=== PATIENT | male | born 1980 | race Caucasian/White ===

== ENCOUNTER 2019-07-10 19:58 | Emergency (ER) | payer OTHER ==
[2019-07-10 20:49] VITALS: BP 130/78; PULSE 104; RESP 20; TEMP 98
--- NOTE | 2019-07-10 21:42 | XR ---
EXAMINATION TYPE: XR elbow complete LT DATE OF EXAM: 07/10/2019 COMPARISON: NONE HISTORY: Elbow abscess TECHNIQUE: 3 views FINDINGS: There is an elbow prosthesis with prosthetic radial head. There is some lucency around the prosthesis involving the proximal radius. I see no fracture nor dislocation. There is a plate fixing the proximal ulna. No definite joint effusion. IMPRESSION: Lucency around the radial head prosthesis suggestive of loosening of the prosthesis. No f racture seen
--- NOTE | 2019-07-10 21:43 | XR ---
EXAMINATION TYPE: XR forearm LT DATE OF EXAM: 07/10/2019 COMPARISON: NONE HISTORY: Elbow abscess. Pain. Infection. TECHNIQUE: 2 views FINDINGS: There is a plate fixing the proximal ulna. There is a radial head prosthesis. There is some lucency around the radial head prosthesis that could relate to loosening and also inflammatory or in fectious process. There is no definite joint effusion. IMPRESSION: Loosening around the radial head prosthesis. Septic arthritis is possible.
--- NOTE | 2019-07-10 21:44 | ED ---
Skin/Abscess/FB HPI - General Chief complaint: Skin/Abscess/Foreign Body Stated complaint: L arm injury Time Seen by Provider: 07/10/19 20:45 Source: patient Mode of arrival: ambulatory Limitations: no limitations - History of Present Illness Initial comments: Patient is a 39-year-old male presenting to the emergency Department with complaints of a possible abscess on his left elbow that he noticed 2 days ago. Patient has previous history of significant left elbow fractures with repair consisting a plate and screws that was done in October at [facility] by Dr. Alcides Luna. Patient states ever since the surgery he has had a chronic scab in the end of his elbow that sometimes falls off and then regrows. He has never had drainage from the area. Patient states 2 days ago the scab was ripped off and then ever since he has been having yellow drainage from the wound. Patient states he feels like his left arm is also swollen and a slight increase in pain through his left elbow and left forearm. Patient denies fever, chills. Patient has no other complaints at this time. Upon arrival to ER, vital signs are stable. - Related Data Previous Rx's Medication Instructions Recorded Cephalexin [Keflex] 500 mg PO Q6HR 7 Days #28 cap 07/10/19 Allergies Allergy/AdvReac Type Severity Reaction Status Date / Time No Known Allergies Allergy Verified 07/10/19 20:47 Review of Systems ROS Statement: Those systems with pertinent positive or pertinent negative responses have been documented in the HPI. ROS Other: All systems not noted in ROS Statement are negative. Past Medical History Past Medical History: No Reported History History of Any Multi-Drug Resistant Organisms: None Reported Additional Past Surgical History / Comment(s): left arm fx repair, spleenectomy Past Psychological History: No Psychological Hx Reported Smoking Status: Current every day smoker Past Alcohol Use History: None Reported Past Drug Use History: None Reported General Exam - General Exam Comments Initial Comments: GENERAL: Well-appearing, well-nourished and in no acute distress. HEAD: Atraumatic, normocephalic. EYES: Pupils equal round and reactive to light, extraocular movements intact, sclera anicteric, conjunctiva are normal. ENT: Moist mucous membranes. NECK: Normal range of motion, supple without lymphadenopathy or JVD. LUNGS: Breath sounds clear to auscultation bilaterally and equal. No wheezes rales or rhonchi. HEART: Regular rate and rhythm without murmurs, rubs or gallops. ABDOMEN: Soft, nontender, normoactive bowel sounds. No masses appreciated. : Deferred EXTREMITIES: Patient has pain with palpation of the left olecranon process. There is some pain with palpation in the left forearm. Patient has decreased range of motion of left elbow secondary to previous injury and surgeries. There is some mild swelling to the left elbow and forearm. Patient's neurovascular intact. NEUROLOGICAL: Cranial nerves II through XII grossly intact. Normal speech, normal gait. PSYCH: Normal mood, normal affect. SKIN: Warm, Dry, normal turgor, no rashes. patient has a dime size open wound on the left olecranon process that is actively draining yellow discharge. Limitations: no limitations Course Vital Signs 07/10/19 20:47 Temperature 98.0 F Pulse Rate 104 H Respiratory 20 Rate Blood Pressure 130/78 O2 Sat by Pulse 99 Oximetry Medical Decision Making - Medical Decision Making Patient is a 39-year-old male presenting with a possible abscess on his left elbow 3 days. Patient has history of left elbow surgery in October at [facility]. Patient has a radial head a prosthesis as well as a plate and screws the proximal ulna. Patient denies fever, chills. Vital signs are stable today. On exam patient has a dime-sized open ulcer on his olecranon process that is actively draining yellow fluid. Culture was obtained and is pending at this time. X-rays of the left elbow and forearm reveal a possible loosening of the radial head prosthesis as well as possible inflammatory or infectious process. Sepsis arthritis is possible. CBC shows normal white count, ESR is 8. CMP is normal, C-reactive protein is elevated at 33.4. I spoke with Dr. Alcides Luna from [facility] who recommended patient be started on antibiotics and he will see the patient at his [place] office Sunday. Patient will go to [facility] ER if symptoms increase such as fever, chills, nausea, vomiting, or increase in redness and swelling of his left elbow. Patient is in agreement with this plan of care. Patient is stable for discharge at this time. Case is discussed with Dr. Valentin. - Lab Data Result diagrams: 07/10/19 22:08 07/10/19 22:08 Lab Results 07/10/19 07/10/19 Range/Units 22:08 22:08 WBC 8.4 (3.8-10.6) k/uL RBC 4.67 (4.30-5.90) m/uL Hgb 14.1 (13.0-17.5) gm/dL Hct 43.7 (39.0-53.0) % MCV 93.5 (80.0-100.0) fL MCH 30.2 (25.0-35.0) pg MCHC 32.3 (31.0-37.0) g/dL RDW 13.3 (11.5-15.5) % Plt Count 261 (150-450) k/uL Neutrophils % (Manual) 49 % Lymphocytes % (Manual) 37 % Monocytes % (Manual) 8 % Eosinophils % (Manual) 6 % Neutrophils # (Manual) 4.12 (1.3-7.7) k/uL Lymphocytes # (Manual) 3.11 (1.0-4.8) k/uL Monocytes # (Manual) 0.67 (0-1.0) k/uL Eosinophils # (Manual) 0.50 (0-0.7) k/uL Nucleated RBCs 0 (0-0) /100 WBC Manual Slide Review Performed RBC Morphology Normal ESR 8 (0-15) mm/hr Sodium 139 (137-145) mmol/L Potassium 4.2 (3.5-5.1) mmol/L Chloride 106 (98-107) mmol/L Carbon Dioxide 25 (22-30) mmol/L Anion Gap 8 mmol/L BUN 19 (9-20) mg/dL Creatinine 0.69 (0.66-1.25) mg/dL Est GFR (CKD-EPI)AfAm >90 (>60 ml/min/1.73 sqM) Est GFR (CKD-EPI)NonAf >90 (>60 ml/min/1.73 sqM) Glucose 102 H (74-99) mg/dL Calcium 9.1 (8.4-10.2) mg/dL Total Bilirubin 0.3 (0.2-1.3) mg/dL AST 33 (17-59) U/L ALT 32 (21-72) U/L Alkaline Phosphatase 90 (38-126) U/L C-Reactive Protein 33.4 H (<10.0) mg/L Total Protein 7.0 (6.3-8.2) g/dL Albumin 3.8 (3.5-5.0) g/dL Disposition Clinical Impression: Abscess of bursa, left elbow, Left elbow pain Disposition: HOME SELF-CARE Condition: Stable Instructions (If sedation given, give patient instructions): Abscess (ED) Additional Instructions: Please return to the Emergency Department if symptoms worsen or any other concerns. Follow-up with Dr. Luna Sunday at his [place] office. [phone]. Take antibiotics as prescribed. Prescriptions: Cephalexin [Keflex] 500 mg PO Q6HR 7 Days #28 cap Is patient prescribed a controlled substance at d/c from ED?: No Referrals: Nonstaff,Physician [Primary Care Provider] - 1-2 days Alcides Luna MD [REFERRING] - 1-2 days
[2019-07-10 22:16] LABS: HCT 43.7 % (39.0-53.0); HGB 14.1 gm/dL (13.0-17.5); MCH 30.2 pg (25.0-35.0); MCHC 32.3 g/dL (31.0-37.0); MCV 93.5 fL (80.0-100.0); Mean Platelet Volume 9.1; Platelet Count 261 k/uL (150-450); RBC 4.67 m/uL (4.30-5.90); RDW 13.3 % (11.5-15.5); WBC 8.4 k/uL (3.8-10.6)
[2019-07-10 22:27] LABS: ALT 32 U/L (21-72); AST 33 U/L (17-59); African American GFR (CKD) >90 (>60 ml/min/1.73 sqM); Albumin 3.8 g/dL (3.5-5.0); Alkaline Phosphatase 90 U/L (38-126); Anion Gap 8 mmol/L; Blood Urea Nitrogen 19 mg/dL (9-20); C Reactive Protein 33.4 mg/L (<10.0); Calcium 9.1 mg/dL (8.4-10.2); Carbon Dioxide 25 mmol/L (22-30); Chloride 106 mmol/L (98-107); Glucose 102 mg/dL (74-99); Potassium 4.2 mmol/L (3.5-5.1); Sodium 139 mmol/L (137-145); Total Bilirubin 0.3 mg/dL (0.2-1.3)
[2019-07-10 22:36] LABS: Lymphocytes # (M) 3.11 k/uL (1.0-4.8); Monocytes # (M) 0.67 k/uL (0-1.0); Neutrophils % (M) 49 %; Nucleated Red Blood Cells 0 /100 WBC (0-0); Total Cells Counted 100
[2019-07-10] MEDS ORDERED: ONDANSETRON 4 MG/2 ML VIAL IVP PRN (22:37)
[2019-07-10] MEDS ORDERED: traMADol 50 MG TAB PO PRN (22:37)
[2019-07-10] MEDS ORDERED: ACETAMINOPHEN TAB 325 MG TAB PO PRN (22:37)
[2019-07-10] MEDS ORDERED: MORPHINE SULFATE 4 MG/ML SYRINGE IV PRN (22:37)
[2019-07-10] MEDS ORDERED: NALOXONE 0.4 MG/ML 1 ML VIAL IV PRN (22:37)
[2019-07-10] MEDS ORDERED: SODIUM CHLORIDE 0.9% 1,000 ML IV SCH (22:45)
[2019-07-10 23:14] LABS: Erythrocyte Sedimentation Rate 8 mm/hr (0-15)
[2019-07-10] MEDS ORDERED: ACET/COD 300 MG/30 MG STARTER PACK 6 TAB BTL PO STA (23:53)
== END 2019-07-11 | disposition home or self-care (01) ==
LOC: EC 19:58
DX: M71.022 Abscess of bursa, left elbow (principal); R79.89 Other specified abnormal findings of blood chemistry; F17.200 Nicotine dependence, unspecified, uncomplicated; Z87.81 Personal history of (healed) traumatic fracture; Z96.7 Presence of other bone and tendon implants
CPT/HCPCS: 36415; 80053; 85025; 85652; 86140; 87070; 87077; 87186; 87205; 99283

== ENCOUNTER 2019-09-02 22:25 | Emergency (ER) | payer OTHER ==
[2019-09-02 22:37] VITALS: RESP 18
[2019-09-02] MEDS ORDERED: cefTRIAXone IN SWFI 1,000 MG/10 ML SYRINGE IVP STA (22:56)
[2019-09-02] MEDS ORDERED: SODIUM CHLORIDE 0.9% 1,000 ML IV STA (22:56)
--- NOTE | 2019-09-03 00:04 | XR ---
EXAMINATION TYPE: XR elbow complete LT DATE OF EXAM: 09/02/2019 COMPARISON: NONE HISTORY: Pain TECHNIQUE: 3 views FINDINGS: There is a plate with screws fixing fracture of the proximal ulna. There is radial head pro sthesis. I see no fracture nor dislocation. There is no sign of joint effusion. There is lucency arou nd the radial head prosthesis. IMPRESSION: No fracture seen. There is some lucency around the radial head prosthesis that is consist ent with loosening.
--- NOTE | 2019-09-03 00:05 | XR ---
EXAMINATION TYPE: XR forearm LT DATE OF EXAM: 09/02/2019 COMPARISON: NONE HISTORY: Pain TECHNIQUE: 2 views FINDINGS: There is a plate with screws fixing proximal ulna. There is radial head prosthesis with pradip ency around the prosthesis consistent with instability and loosening. I see no fracture nor dislocati on. Wrist joint is intact. IMPRESSION: There is some loosening of the radial head prosthesis. No fracture seen.
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
[2019-09-03 00:41] LABS: ALT 30 U/L (4-49); AST 31 U/L (17-59); African American GFR (CKD) >90 (>60 ml/min/1.73 sqM); Albumin 3.8 g/dL (3.5-5.0); Alkaline Phosphatase 112 U/L (38-126); Anion Gap 6 mmol/L; Blood Urea Nitrogen 15 mg/dL (9-20); C Reactive Protein <5.0 mg/L (<10.0); Carbon Dioxide 25 mmol/L (22-30); Chloride 107 mmol/L (98-107); Glucose 90 mg/dL (74-99); Non-African American GFR(CKD) >90 (>60 ml/min/1.73 sqM); Potassium 4.3 mmol/L (3.5-5.1); Sodium 138 mmol/L (137-145); Total Bilirubin 0.4 mg/dL (0.2-1.3); Total Protein 7.1 g/dL (6.3-8.2)
[2019-09-03 00:50] LABS: Basophils # (A) 0.1 k/uL (0-0.2); Basophils % (A) 2 %; Eosinophils # (A) 0.3 k/uL (0-0.7); Eosinophils % (A) 3 %; HCT 45.9 % (39.0-53.0); HGB 15.3 gm/dL (13.0-17.5); Lymphocytes # (A) 2.4 k/uL (1.0-4.8); Lymphocytes % (A) 27 %; MCH 31.2 pg (25.0-35.0); MCHC 33.4 g/dL (31.0-37.0); MCV 93.6 fL (80.0-100.0); Mean Platelet Volume 10.4; Monocytes % (A) 11 %; Neutrophils # (A) 4.8 k/uL (1.3-7.7); Neutrophils % (A) 54 %; Platelet Count 266 k/uL (150-450); RBC 4.91 m/uL (4.30-5.90); RDW 13.2 % (11.5-15.5); WBC 8.9 k/uL (3.8-10.6)
[2019-09-03 01:25] LABS: Erythrocyte Sedimentation Rate 2 mm/hr (0-15)
[2019-09-03] MEDS ORDERED: SULFAMETH-TMP DS STARTER PACK 2 TAB BTL PO STA (01:50)
[2019-09-03 02:00] VITALS: BP 129/85; PULSE 81; TEMP 98.5
== END 2019-09-03 02:25 | disposition home or self-care (01) ==
LOC: EC 22:25
DX: L02.414 Cutaneous abscess of left upper limb (principal); F17.200 Nicotine dependence, unspecified, uncomplicated; Z90.81 Acquired absence of spleen; W13.2XXA Fall from, out of or through roof, initial encounter
CPT/HCPCS: 36415; 80053; 85652; 83605; 85025; 86140; 87040; 87070; 87205; 73080; 73090; 99283; 10060; 96374; 96361 ×2; J0696

== ENCOUNTER 2019-10-27 07:29 | Emergency (ER) | payer OTHER ==
[2019-10-27 07:43] VITALS: BP 142/85; PULSE 94; RESP 18; TEMP 98.6
[2019-10-27] MEDS ORDERED: GELATIN SPONGE,ABSORB (SMALL) 1 EACH SPONGE TOPICAL STA (07:50)
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
--- NOTE | 2019-10-27 08:36 | XR ---
EXAMINATION TYPE: XR forearm LT, XR elbow complete LT DATE OF EXAM: 10/27/2019 CLINICAL HISTORY: Trauma with subsequent left forearm pain. TECHNIQUE: Two views of the left forearm are obtained. 2 views of the left elbow were also obtained. COMPARISON: 09/02/2019 FINDINGS: Surgical hardware has been removed on the left radius and ulna. Focal soft tissue swelling is seen of the proximal and mid diaphysis overlying the left ulna. There is no acute displaced proxim al diaphyseal transversely oriented noncomminuted ulnar fracture with maximal distal fragment radial displacement of 4 mm. This is nondisplaced on the lateral view. There is a nonunited radial head prio r fracture. There is positive ulnar variance also noted. There are punctate calcifications overlying the olecranon that may be dystrophic or related to foreign bodies. Small elbow joint effusion. Portio ns of the medial upper condyle are absent, likely surgically. IMPRESSION: 1. Acute transversely oriented minimally displaced proximal ulnar diaphyseal refracture with old hard venegas fracture removed in the interim. Nonunited proximal radial head fracture is also seen with parti al absence of the medial upper condyle, likely postsurgical. Overlying soft tissue swelling is presen t as well as multiple calcifications marked on the images that may be dystrophic from prior surgery a nd injury or related to foreign bodies.
[2019-10-27] MEDS ORDERED: ACET/COD 300 MG/30 MG STARTER PACK 6 TAB BTL PO STA (08:53)
== END 2019-10-27 09:05 | disposition home or self-care (01) ==
LOC: EC 07:29
DX: S52.092A Other fracture of upper end of left ulna, initial encounter for closed fracture (principal); F17.200 Nicotine dependence, unspecified, uncomplicated; X58.XXXA Exposure to other specified factors, initial encounter; Y93.89 Activity, other specified
CPT/HCPCS: 29105; 99283

== ENCOUNTER 2020-12-04 22:37 | Observation (INO) | payer OTHER ==
[2020-12-04] MEDS ORDERED: KETOROLAC 15 MG/ML 1 ML VIAL IVP STA (22:51)
[2020-12-04] MEDS ORDERED: ONDANSETRON 4 MG/2 ML VIAL IVP STA (22:51)
[2020-12-04] MEDS ORDERED: SODIUM CHLORIDE 0.9% 1,000 ML IV STA ×2 (22:51)
[2020-12-04] MEDS ORDERED: MORPHINE SULFATE 4 MG/ML SYRINGE IV STA (22:51)
[2020-12-04] MEDS ORDERED: PANTOPRAZOLE 40 MG/10 ML VIAL IVP STA (22:51)
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
[2020-12-04 23:20] LABS: Partial Thromboplastin Time 26.1 sec (22.0-30.0); Prothrombin Time 10.9 sec (9.0-12.0)
[2020-12-04 23:22] LABS: ALT 696 U/L (4-49); AST 323 U/L (17-59); African American GFR (CKD) >90 (>60 ml/min/1.73 sqM); Alkaline Phosphatase 166 U/L (38-126); Amylase 76 U/L (30-110); Anion Gap 6 mmol/L; Blood Urea Nitrogen 23 mg/dL (9-20); Calcium 9.4 mg/dL (8.4-10.2); Carbon Dioxide 30 mmol/L (22-30); Chloride 106 mmol/L (98-107); Glucose 106 mg/dL (74-99); Lipase 215 U/L (23-300); Non-African American GFR(CKD) >90 (>60 ml/min/1.73 sqM); Sodium 142 mmol/L (137-145); Total Bilirubin 0.4 mg/dL (0.2-1.3); Total Protein 7.3 g/dL (6.3-8.2)
--- NOTE | 2020-12-04 23:37 | US ---
EXAMINATION TYPE: US gallbladder DATE OF EXAM: 12/04/2020 COMPARISON: NONE CLINICAL HISTORY: pain. RUQ pain EXAM MEASUREMENTS: Liver Length: 17.2 cm Gallbladder Wall: .13 cm CBD: .5 cm Right Kidney: 10.8 x 4.2 x 5.4 cm Pancreas: Obscured by bowel gas Liver: wnl Gallbladder: Upper limits 10.3 cm Evidence for sonographic Mathews's sign: No CBD: wnl Right Kidney: wnl IMPRESSION: Gallbladder is dilated and measures 5 cm in diameter and suggestive of gallbladder dysfunction or cho lecystitis. No dilated ducts. No gallbladder wall thickening seen however. There was no pain over the gallbladder. No focal liver defect.
[2020-12-04 23:49] LABS: Basophils # (A) 0.1 k/uL (0-0.2); Basophils % (A) 1 %; Eosinophils # (A) 0.4 k/uL (0-0.7); Eosinophils % (A) 4 %; HGB 16.4 gm/dL (13.0-17.5); Lymphocytes # (A) 3.8 k/uL (1.0-4.8); Lymphocytes % (A) 38 %; MCH 32.2 pg (25.0-35.0); MCHC 33.5 g/dL (31.0-37.0); MCV 95.9 fL (80.0-100.0); Mean Platelet Volume 10.6; Monocytes # (A) 1.3 k/uL (0-1.0); Monocytes % (A) 13 %; Neutrophils # (A) 4.2 k/uL (1.3-7.7); Neutrophils % (A) 41 %; Platelet Count 240 k/uL (150-450); RBC 5.11 m/uL (4.30-5.90); RDW 13.1 % (11.5-15.5); WBC 10.2 k/uL (3.8-10.6)
[2020-12-05] MEDS ORDERED: ACETAMINOPHEN TAB 325 MG TAB PO PRN (00:44)
[2020-12-05] MEDS ORDERED: NALOXONE 0.4 MG/ML 1 ML VIAL IV PRN (00:44)
[2020-12-05] MEDS ORDERED: AMPICILLIN-SULBACTAM 3 GM in SODIUM CHLORIDE 0.9% 100 ML IVPB STA (00:44)
[2020-12-05] MEDS ORDERED: ONDANSETRON 4 MG/2 ML VIAL IVP PRN (00:44)
[2020-12-05] MEDS: DEXTROSE 5%-0.45% NACL 1,000 ML IV SCH ×2 (01:07→09:53)
[2020-12-05] MEDS: MORPHINE SULFATE 4 MG/ML SYRINGE IV PRN ×3 (02:22→10:12)
[2020-12-05 03:03] VITALS: RESP 18
[2020-12-05 07:46] VITALS: BP 122/71; PULSE 60; TEMP 97.6
[2020-12-05] MEDS ORDERED: AMPICILLIN-SULBACTAM 3 GM in SODIUM CHLORIDE 0.9% 100 ML IVPB SCH (09:00)
[2020-12-05 10:25] LABS: ALT 580 U/L (4-49); AST 246 U/L (17-59); African American GFR (CKD) >90 (>60 ml/min/1.73 sqM); Albumin 3.1 g/dL (3.5-5.0); Albumin/Globulin Ratio 1.1; Alkaline Phosphatase 117 U/L (38-126); Anion Gap 2 mmol/L; Blood Urea Nitrogen 18 mg/dL (9-20); Calcium 8.4 mg/dL (8.4-10.2); Carbon Dioxide 26 mmol/L (22-30); Chloride 110 mmol/L (98-107); Globulin 2.8 g/dL; Glucose 91 mg/dL (74-99); Non-African American GFR(CKD) >90 (>60 ml/min/1.73 sqM); Potassium 4.2 mmol/L (3.5-5.1); Sodium 138 mmol/L (137-145); Total Bilirubin 0.8 mg/dL (0.2-1.3); Total Protein 5.9 g/dL (6.3-8.2)
[2020-12-05 10:33] LABS: Basophils # (A) 0.1 k/uL (0-0.2); Basophils % (A) 1 %; Eosinophils # (A) 0.3 k/uL (0-0.7); Eosinophils % (A) 4 %; HCT 46.1 % (39.0-53.0); HGB 14.8 gm/dL (13.0-17.5); Lymphocytes # (A) 2.3 k/uL (1.0-4.8); Lymphocytes % (A) 32 %; MCH 31.2 pg (25.0-35.0); MCHC 32.1 g/dL (31.0-37.0); MCV 97.1 fL (80.0-100.0); Mean Platelet Volume 10.6; Monocytes # (A) 1.1 k/uL (0-1.0); Monocytes % (A) 16 %; Neutrophils # (A) 3.2 k/uL (1.3-7.7); Neutrophils % (A) 44 %; Platelet Count 201 k/uL (150-450); RBC 4.74 m/uL (4.30-5.90); RDW 13.5 % (11.5-15.5); WBC 7.2 k/uL (3.8-10.6)
--- NOTE | 2020-12-05 11:44 | P.GSHP ---
History of Present Illness H&P Date: 12/05/20 Chief Complaint: Right upper quadrant pain 40-year-old male comes in the hospital with right upper quadrant pain that began on . Patient says the pain radiates from the right upper quadrant to the back. He has a personal history of hepatitis C. Apparently he was close to see a specialist in the [place] area but never followed up with them. His liver enzymes were elevated on arrival. Ultrasound showed a slightly distended gallbladder. There was no sonographic Mathews's sign. There was no gallbladder wall thickening. Biliary tree without dilation. No stones were seen. Patient says he does feel better today. He states he is likely going to be leaving the hospital. Denies fevers or chills. No change in the color of his skin urine or stool. Today's labs show a slight improvement in his liver enzymes. - Review of Systems Comment: The patient denies any acute changes in vision or hearing, no dysphagia or odyn ophagia, no chest pain or shortness of breath, no dysuria or hematuria, no headache, no runny nose, no rectal bleeding or melena, no unexplained weight loss Past Medical History Past Medical History: No Reported History History of Any Multi-Drug Resistant Organisms: None Reported Additional Past Surgical History / Comment(s): left arm fx repair, spleenectomy Past Psychological History: No Psychological Hx Reported Smoking Status: Current every day smoker Past Alcohol Use History: None Reported Past Drug Use History: None Reported Medications and Allergies Home Medications Medication Instructions Recorded Confirmed Type rOPINIRole HCL [Requip] 2 mg PO HS 12/05/20 12/05/20 History Allergies Allergy/AdvReac Type Severity Reaction Status Date / Time No Known Allergies Allergy Verified 12/05/20 07:49 Surgical - Exam Vital Signs Temp Pulse Resp BP Pulse Ox 98 F 71 18 142/95 98 12/04/20 22:40 12/04/20 22:40 12/04/20 22:40 12/04/20 22:40 12/04/20 22:40 Physical exam: General: Well-developed, well-nourished male somewhat anxious HEENT: Normocephalic, sclerae nonicteric Abdomen: Mild right upper quadrant tenderness, nondistended Extremities: No edema Neuro: Alert and oriented Results - Labs 12/05/20 09:58 12/05/20 09:58 Abnormal Lab Results - Last 24 Hours (Table) 12/04/20 12/04/20 12/05/20 Range/Units 22:51 22:51 09:58 Monocytes # 1.3 H 1.1 H (0-1.0) k/uL Chloride (98-107) mmol/L BUN 23 H (9-20) mg/dL Glucose 106 H (74-99) mg/dL AST 323 H (17-59) U/L ALT 696 H (4-49) U/L Alkaline Phosphatase 166 H (38-126) U/L Total Protein (6.3-8.2) g/dL Albumin (3.5-5.0) g/dL 12/05/20 Range/Units 09:58 Monocytes # (0-1.0) k/uL Chloride 110 H (98-107) mmol/L BUN (9-20) mg/dL Glucose (74-99) mg/dL AST 246 H (17-59) U/L ALT 580 H (4-49) U/L Alkaline Phosphatase (38-126) U/L Total Protein 5.9 L (6.3-8.2) g/dL Albumin 3.1 L (3.5-5.0) g/dL Diabetes panel 12/04/20 12/05/20 Range/Units 22:51 09:58 Sodium 142 138 (137-145) mmol/L Potassium 4.0 4.2 (3.5-5.1) mmol/L Chloride 106 110 H (98-107) mmol/L Carbon Dioxide 30 26 (22-30) mmol/L BUN 23 H 18 (9-20) mg/dL Creatinine 0.83 0.76 (0.66-1.25) mg/dL Glucose 106 H 91 (74-99) mg/dL Calcium 9.4 8.4 (8.4-10.2) mg/dL AST 323 H 246 H (17-59) U/L ALT 696 H 580 H (4-49) U/L Alkaline Phosphatase 166 H 117 (38-126) U/L Total Protein 7.3 5.9 L (6.3-8.2) g/dL Albumin 4.0 3.1 L (3.5-5.0) g/dL Calcium panel 12/04/20 12/05/20 Range/Units 22:51 09:58 Calcium 9.4 8.4 (8.4-10.2) mg/dL Albumin 4.0 3.1 L (3.5-5.0) g/dL Pituitary panel 12/04/20 12/05/20 Range/Units 22:51 09:58 Sodium 142 138 (137-145) mmol/L Potassium 4.0 4.2 (3.5-5.1) mmol/L Chloride 106 110 H (98-107) mmol/L Carbon Dioxide 30 26 (22-30) mmol/L BUN 23 H 18 (9-20) mg/dL Creatinine 0.83 0.76 (0.66-1.25) mg/dL Glucose 106 H 91 (74-99) mg/dL Calcium 9.4 8.4 (8.4-10.2) mg/dL Adrenal panel 21 12/05/20 Range/Units 22:51 09:58 Sodium 142 138 (137-145) mmol/L Potassium 4.0 4.2 (3.5-5.1) mmol/L Chloride 106 110 H (98-107) mmol/L Carbon Dioxide 30 26 (22-30) mmol/L BUN 23 H 18 (9-20) mg/dL Creatinine 0.83 0.76 (0.66-1.25) mg/dL Glucose 106 H 91 (74-99) mg/dL Calcium 9.4 8.4 (8.4-10.2) mg/dL Total Bilirubin 0.4 0.8 (0.2-1.3) mg/dL AST 323 H 246 H (17-59) U/L ALT 696 H 580 H (4-49) U/L Alkaline Phosphatase 166 H 117 (38-126) U/L Total Protein 7.3 5.9 L (6.3-8.2) g/dL Albumin 4.0 3.1 L (3.5-5.0) g/dL Assessment and Plan (1) Abdominal pain Narrative/Plan: 40-year-old male with right upper quadrant pain. Patient with elevated liver enzymes and personal history of hepatitis C. Patient's workup shows a distended gallbladder without inflammatory changes. No stone seen. Recommend GI evaluation for hepatitis C. He and I discussed options of CAT scan and HIDA scan for further evaluation of his discomfort. He states he is planning to leave the hospital regardless. Patient could be discharged with plans for outpatient follow-up if he desires. Resume diet at this time. We'll see if the patient waits for GI eval. Current Visit: Yes Status: Acute Code(s): R10.9 - UNSPECIFIED ABDOMINAL PAIN SNOMED Code(s): 09853237
== END 2020-12-05 13:55 | disposition left against medical advice (07) ==
LOC: EC 22:37 → 6NMEDSUR 12-05 00:46
PROVIDERS: ADMIT Surgery; ATTEND Surgery
DX: R10.11 Right upper quadrant pain (principal); K82.8 Other specified diseases of gallbladder; B19.20 Unspecified viral hepatitis C without hepatic coma; F17.200 Nicotine dependence, unspecified, uncomplicated; Z53.21 Procedure and treatment not carried out due to patient leaving prior to being seen by health care provider; Z90.81 Acquired absence of spleen; Z20.822 Contact with and (suspected) exposure to COVID-19
CPT/HCPCS: 99285; 36415; 80053 ×2; 82150; 83690; 85025 ×2; 85610; 85730; 87635; 76705; G0378; J2270 ×2; J2405; J0295; J1885; C9113

== ENCOUNTER → 2020-12-16 | Outpatient (CLI) | payer OTHER ==
[2020-12-16 20:10] LABS: Basophils # (A) 0.11 X 10*3/uL (0.00-0.10); Basophils % (A) 1.7 %; Eosinophils # (A) 0.18 X 10*3/uL (0.04-0.35); Eosinophils % (A) 2.7 %; HCT 51.6 % (39.6-50.0); HGB 16.7 g/dL (13.0-17.0); Lymphocytes # (A) 2.16 X 10*3/uL (0.90-5.00); Lymphocytes % (A) 32.6 %; MCH 31.5 pg (27.0-32.0); MCHC 32.4 g/dL (32.0-37.0); MCV 97.2 fL (80.0-97.0); Monocytes # (A) 1.18 X 10*3/uL (0.20-1.00); Monocytes % (A) 17.8 %; Neutrophils # (A) 2.97 X 10*3/uL (1.80-7.70); Neutrophils % (A) 44.9 %; Platelet Count 244 X 10*3/uL (140-440); RBC 5.31 X 10*6/uL (4.40-5.60); RDW 14.6 % (11.5-14.5); WBC 6.62 X 10*3/uL (4.50-10.00)
[2020-12-16 20:14] LABS: Gliadin AB IgA, Deaminated NEGATIVE (NEGATIVE); Gliadin AB IgA, Unit 1.5 U/mL; Gliadin AB IgG, Deaminated NEGATIVE (NEGATIVE)
[2020-12-16 20:20] LABS: Ferritin 299.9 ng/mL (22.0-322.0)
[2020-12-16 21:34] LABS: Hepatitis B Surface AB- Quant 26.1 mIU/mL; Hepatitis B Surface Antibody Reactive (Non-Reactive); Hepatitis B Surface Antigen Non-Reactive (Non-Reactive)
[2020-12-16 21:53] LABS: Protein, Total 7.3 g/dL (6.2-8.2)
[2020-12-17 05:40] LABS: Hepatitis BE Antigen Nonreactive (Nonreacitve)
[2020-12-17 08:45] LABS: % Iron Saturation 59.05 (15.00-50.00); African American GFR (CKD) 107.9 (60.0-200.0); Albumin 4.4 g/dL (3.80-4.90); Albumin/Globulin Ratio 1.57 (1.60-3.17); Anion Gap 6.6 mmol/L (4.00-12.00); Calcium 9.8 mg/dL (8.7-10.3); Carbon Dioxide 28.4 mmol/L (21.6-31.8); Globulin 2.8 g/dL (1.6-3.3); Non-African American GFR(CKD) 93.1 (60.0-200.0); Potassium 4.7 mmol/L (3.5-5.5); Total Protein 7.2 g/dL (6.2-8.2)
[2020-12-17 11:43] LABS: Liver/Kidney Microsome Antibod 0.8 UNITS (<=20)
[2020-12-17 12:21] LABS: Ceruloplasmin 24.3 mg/dL (20.0-60.0)
[2020-12-17 16:26] LABS: Total Bilirubin 0.7 mg/dL (0.3-1.2)
== END | disposition home or self-care (01) ==
LOC: LABWHC1 10:13
PROVIDERS: ATTEND Internal Medicine
DX: R74.01 Elevation of levels of liver transaminase levels (principal)
CPT/HCPCS: 36415; 80053; 82390; 82728; 83516; 83540; 83550; 84165; 85025; 86038; 86376; 86704; 86706; 87340; 87350; 87522

== ENCOUNTER 2021-08-06 03:04 | Emergency (ER) | payer OTHER ==
[2021-08-06 03:11] VITALS: BP 114/72; PULSE 62; RESP 18; TEMP 98.7
[2021-08-06] MEDS ORDERED: IBUPROFEN 400 MG TAB PO STA (03:40)
[2021-08-06] MEDS ORDERED: HYDROcodone/APAP 5-325MG 1 EACH TAB PO STA (03:40)
--- NOTE | 2021-08-06 03:45 | ED ---
Upper Extremity HPI - General Chief Complaint: Extremity Injury, Upper Stated Complaint: Bilateral hand injury Time Seen by Provider: 08/06/21 03:15 Source: patient Mode of arrival: ambulatory Limitations: no limitations - History of Present Illness Complaint: Injury to:: left, right, hand -: hour(s) Other Extremity Injury: Hand: Left, Right, Wrist: Left Handedness: right Place: work Improves With: immobilization Worsens With: movement of extremity Context: direct blow - Related Data Home Medications Medication Instructions Recorded Confirmed rOPINIRole HCL [Requip] 2 mg PO HS 12/05/20 12/05/20 Previous Rx's Medication Instructions Recorded Ibuprofen [Motrin] 600 mg PO Q8HR PRN #20 tab 08/06/21 Allergies Allergy/AdvReac Type Severity Reaction Status Date / Time No Known Allergies Allergy Verified 08/06/21 03:11 Review of Systems ROS Statement: Those systems with pertinent positive or pertinent negative responses have been documented in the HPI. ROS Other: All systems not noted in ROS Statement are negative. Constitutional: Denies: fever Musculoskeletal: Reports: as per HPI, joint swelling, arthralgia Skin: Denies: rash, lesions Neurological: Denies: weakness, numbness, paresthesias Past Medical History Past Medical History: No Reported History History of Any Multi-Drug Resistant Organisms: None Reported Additional Past Surgical History / Comment(s): left arm fx repair, spleenectomy Past Psychological History: No Psychological Hx Reported Smoking Status: Current every day smoker Past Alcohol Use History: Daily Past Drug Use History: Marijuana General Exam Limitations: no limitations General appearance: alert, in no apparent distress Right Elbow exam: Present: normal inspection, full ROM Forearm Wrist exam: Present: normal inspection, full ROM Hand Wrist exam: Present: tenderness, swelling. Absent: laceration, ecchymosis, deformity, crepitus, dislocation, erythema, amputation, nail avulsion, subungual hematoma Neuro motor exam: Present: wrist extension intact, thumb opposition intact, thumb IP flexion intact, thumb adduction intact, fingers 2-5 abduction intact Neurosensory exam: Present: 2-point discrimination, radial nerve intact, ulnar nerve intact, median nerve intact Vascular: Present: normal capillary refill. Absent: pulse deficit radial art, pulse deficit ulnar art, pulse deficit brachial art Left Elbow exam: Present: normal inspection, full ROM. Absent: tenderness, swelling Forearm Wrist exam: Present: normal inspection, full ROM. Absent: tenderness, swelling Hand Wrist exam: Present: normal inspection, full ROM, tenderness. Absent: swelling, abrasion, laceration, ecchymosis, deformity, crepitus, dislocation Course Vital Signs 08/06/21 03:08 Temperature 98.7 F Pulse Rate 62 Respiratory 18 Rate Blood Pressure 114/72 O2 Sat by Pulse 100 Oximetry Disposition Clinical Impression: Contusion of hand Disposition: HOME SELF-CARE Condition: Good Instructions (If sedation given, give patient instructions): Hand Sprain (ED) Prescriptions: Ibuprofen [Motrin] 600 mg PO Q8HR PRN #20 tab PRN Reason: Pain Is patient prescribed a controlled substance at d/c from ED?: No Referrals: Nonstaff,Physician [Primary Care Provider] - 1-2 days
--- NOTE | 2021-08-06 03:58 | XR ---
EXAMINATION TYPE: XR hand complete bilateral DATE OF EXAM: 08/06/2021 COMPARISON: NONE HISTORY: Complaining injury. Pain. TECHNIQUE: 3 views each hand FINDINGS: There is intramedullary glory in the left ulna. The metacarpals are intact. Carpal bones are intact. The fingers appear intact. There are no erosions. There is soft tissue swelling on the dorsum of the right hand. There is no significant swelling on the left side. IMPRESSION: No fracture seen. Soft tissue swelling seen on the right hand.
[2021-08-06] MEDS ORDERED: traMADol 50 MG STARTER PACK 3 TAB BTL PO STA (04:43)
== END 2021-08-06 04:52 | disposition home or self-care (01) ==
LOC: EC 03:04
DX: S60.222A Contusion of left hand, initial encounter (principal); S60.221A Contusion of right hand, initial encounter; F17.200 Nicotine dependence, unspecified, uncomplicated; W50.0XXA Accidental hit or strike by another person, initial encounter; Y92.89 Other specified places as the place of occurrence of the external cause
CPT/HCPCS: 99284

== ENCOUNTER 2022-09-15 06:45 | Emergency (ER) | payer OTHER ==
[2022-09-15 06:53] VITALS: BP 157/101; PULSE 92; RESP 16; TEMP 97.9
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
[2022-09-15 07:27] LABS: Basophils # (A) 0.1 k/uL (0-0.2); Basophils % (A) 0 %; Eosinophils # (A) 0.1 k/uL (0-0.7); Eosinophils % (A) 0 %; HCT 46.4 % (39.0-53.0); HGB 15.8 gm/dL (13.0-17.5); Lymphocytes # (A) 0.9 k/uL (1.0-4.8); Lymphocytes % (A) 5 %; MCV 94.2 fL (80.0-100.0); Mean Platelet Volume 11.5; Monocytes % (A) 5 %; Neutrophils # (A) 18.1 k/uL (1.3-7.7); Neutrophils % (A) 89 %; Platelet Count 186 k/uL (150-450); RBC 4.92 m/uL (4.30-5.90); RDW 12.8 % (11.5-15.5); WBC 20.4 k/uL (3.8-10.6)
[2022-09-15 07:48] LABS: ALT 31 U/L (4-49); AST 81 U/L (17-59); African American GFR (CKD) >90 (>60 ml/min/1.73 sqM); Albumin 4.7 g/dL (3.5-5.0); Alcohol <10 mg/dL; Alkaline Phosphatase 137 U/L (38-126); Anion Gap 8 mmol/L; Blood Urea Nitrogen 19 mg/dL (9-20); Calcium 8.6 mg/dL (8.4-10.2); Carbon Dioxide 25 mmol/L (22-30); Chloride 107 mmol/L (98-107); Glucose 96 mg/dL (74-99); Non-African American GFR(CKD) >90 (>60 ml/min/1.73 sqM); Sodium 140 mmol/L (137-145); Total Bilirubin 1.2 mg/dL (0.2-1.3); Total Protein 7.8 g/dL (6.3-8.2)
[2022-09-15 07:54] LABS: Potassium 4.6 mmol/L (3.5-5.1)
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
[2022-09-15 08:55] LABS: Amphetamine Screen,Urine Detected (NotDetected); Barbiturate Screen,Urine Not Detected (NotDetected); Benzodiazepines Screen,Urine Not Detected (NotDetected); Cocaine Screen,Urine Not Detected (NotDetected); Methadone Screen, Urine Not Detected (NotDetected); Opiate Screen,Urine Not Detected (NotDetected); Oxycodone Screen, Urine Not Detected (NotDetected); Phencyclidine Screen,Urine Not Detected (NotDetected); Tricyclic Antidepressant,Urine Not Detected (NotDetected); Urn Cannabinoid Scrn Detected (NotDetected)
[2022-09-15 09:25] LABS: Partial Thromboplastin Time 25.1 sec (22.0-30.0); Prothrombin Time 10.6 sec (9.0-12.0)
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
[2022-09-15] MEDS ORDERED: ACET/COD 300 MG/30 MG STARTER PACK 6 TAB BTL PO STA ×2 (10:00→18:33)
== END 2022-09-15 10:13 | disposition home or self-care (01) ==
LOC: EC 06:45
DX: S80.02XA Contusion of left knee, initial encounter (principal); M89.9 Disorder of bone, unspecified; F17.200 Nicotine dependence, unspecified, uncomplicated; F12.90 Cannabis use, unspecified, uncomplicated; V89.2XXA Person injured in unspecified motor-vehicle accident, traffic, initial encounter; Y92.411 Interstate highway as the place of occurrence of the external cause
CPT/HCPCS: 99285 ×2; 36415; 93005; 86900; 86901; 80053; 85025; 85610; 85730; 86850; 80306; 80320; 72170; 73562; 71045; 72125; 70450; 71260; 74177; Q9967